=== PATIENT | female | born 1960 | race Asian ===

== ENCOUNTER 2019-06-16 14:46 | Outpatient (REF) | payer BC, SELFPAY ==
[2019-06-17 16:02] LABS: Fecal Immunochemical Test Negative (Negative)
== END 2019-06-16 15:06 ==
LOC: LBN 14:46
PROVIDERS: PCP Nurse Practitioner Family; Visit Provider Nurse Practitioner Family
DX: Z12.11 Encounter for screening for malignant neoplasm of colon (principal)
CPT/HCPCS: 82274

== ENCOUNTER 2019-10-01 02:21 | Outpatient (CLI) | payer OTHER, SELFPAY ==
--- NOTE | 2019-10-01 07:30 | DI.MAMMO_ITS ---
EXAM: MG MAMMO SCREENING CLINICAL HISTORY: SCREENING, Z12.39. TECHNIQUE: Bilateral full field digital CC and MLO mammographic images were obtained with 3D tomosyn thesis and utilizing computer aided detection (CAD). COMPARISON: Available for comparison. FINDINGS: Masses/Architectural Distortion: None seen. Microcalcifications: No suspicious pleomorphic-type are seen. Skin Thickening/Nipple Retraction: None. IMPRESSION: 1. No significant interval change with no specific features of malignancy noted. 2. Unless there is more urgent need, screening mammography is recommended, as per [employer] guidelines. ACR BI-RAD Category- 1 Negative Breast Density - Category C - Heterogeneously dense The mammogram demonstrates the patient's breast tissue is dense. Dense breast tissue is very common a nd is not abnormal but dense breast tissue can make it harder to find cancer on a mammogram. Also, de nse breast tissue may increase their breast cancer risk. This information about the result of the [facility] mogram report was provided to the patient to raise their awareness. Use this report when you speak wi th the patient about their risks for breast cancer, which includes their family history. At that time , you may recommend for more screening tests (Ultrasound or MRI) as they might be useful based on the ir risk. A negative radiographic report should not delay biopsy if a dominant or clinically suspicious mass is present. Up to ten percent of cancers are not identified on mammography. A negative report may reinforce clinical impression. Adenosis and dense breasts may obscure an underlying neoplasm. False positive reports average 6 to 10%. Patient will receive a letter notifying them of these results.
[2019-10-01 08:45] LABS: Hemoglobin A1C 5.8 % (3.8-5.6)
[2019-10-01 08:47] LABS: ALT 52 U/L (14-59); AST 30 U/L (15-37); Albumin 3.8 g/dL (3.4-5.0); Alkaline Phosphatase 91 U/L (46-116); Anion Gap 8.3 mmol/L (3-11); BUN 23 mg/dL (7-18); Bilirubin, Total 0.4 mg/dL (0.2-1.0); CO2 27.7 mmol/L (21.0-32.0); CREATININE 0.65 mg/dL (0.55-1.02); Calcium 9.2 mg/dL (8.5-10.1); Calculated LDL 160 mg/dL (<100); Chloride 106 mmol/L (98-107); Cholesterol 248 mg/dL (<200); Glucose 94 mg/dL (74-106); HDL Cholesterol 83 mg/dL (40-60); Potassium 4.5 mmol/L (3.5-5.1); Sodium 142 mmol/L (136-145); Total Protein 7.2 g/dL (6.4-8.2); Triglyceride 28 mg/dL (<150)
== END 2019-10-01 02:41 ==
PROVIDERS: PCP Nurse Practitioner Family; Visit Provider Nurse Practitioner
DX: Z12.31 Encounter for screening mammogram for malignant neoplasm of breast (principal); R73.01 Impaired fasting glucose; E66.9 Obesity, unspecified; Z00.00 Encounter for general adult medical examination without abnormal findings
CPT/HCPCS: 36415; 77063; 77067; 80053; 80061; 83036

== ENCOUNTER 2021-02-28 02:26 | Outpatient (CLI) | payer MEDICAID, SELFPAY ==
--- NOTE | 2021-02-28 07:00 | DI.RAD_ITS ---
Exam(s) XR FINGER LT INDEX EXAM: XR FINGER LT INDEX CLINICAL HISTORY: INJURY IN NOVEMBER,? FOREIGN BODY,PAIN LT HAND,SWELLING OF FINGER,M79.645,M79.. TECHNIQUE: 2D digital imaging was performed. COMPARISON: None. FINDINGS: BONES: No acute fracture is present. No bony destructive lesion is seen. There are severe degenerati ve changes at the 1st carpal metacarpal joint. JOINTS: No dislocation present. SOFT TISSUE: Normal. No foreign body is identified. IMPRESSION: Severe degenerative changes at the 1st carpometacarpal joint. No evidence of radiopaque foreign body in the index finger.. DATA REPOSITORY: RADIATION DOSE DELIVERED:
== END 2021-02-28 02:46 ==
PROVIDERS: PCP Nurse Practitioner Family; Visit Provider Nurse Practitioner Family
DX: M18.9 Osteoarthritis of first carpometacarpal joint, unspecified (principal)
CPT/HCPCS: 73140

== ENCOUNTER 2021-06-27 04:14 | Outpatient (CLI) | payer MEDICAID, SELFPAY ==
[2021-06-27 13:31] LABS: Calculated LDL 172 mg/dL (<100); Cholesterol 255 mg/dL (<200); HDL Cholesterol 77 mg/dL (40-60); Triglyceride 30 mg/dL (<150)
[2021-06-27 13:41] LABS: Hemoglobin A1C 5.7 % (<5.7)
[2021-06-30 02:34] LABS: 25-Hydroxy D Total 35 ng/mL; 25-Hydroxy D2 <4.0 ng/mL; 25-Hydroxy D3 35 ng/mL
== END 2021-06-27 04:15 | disposition home or self-care (01) ==
LOC: LBO 04:14
PROVIDERS: Podiatrist; PCP Nurse Practitioner Family; Visit Provider Nurse Practitioner Family
DX: Z01.818 Encounter for other preprocedural examination (principal)
CPT/HCPCS: 36415; 80061; 82306; 83036

== ENCOUNTER 2021-09-14 14:00 | Outpatient (REF) | payer MEDICAID, SELFPAY ==
--- NOTE | 2021-09-14 13:45 | PAPFT_PTH ---
PATIENT: Jenny Sheldon LOC: [facility] U#:[id number] AGE/SX: 61/F ROOM: RE09/14/[address]: Alison Dsouza APRN : 1960 BED: DIS: 09/14/2021 SPEC #: [id number] RECD: 09/14/21 18:02 STATUS: TOVA RETrent #: [id number] ROBER: 09/14/21 13:[address]: Alison Dsouza DEPT: [facility] Cytology RECD BY: Florinda Panda Tissues: 1 - CX/ENDOCX FOR PAP SMEARS Procedures: PAP THIN PREP/UVM Screening HPV DNA PROBE Comments: [id number]
== END 2021-09-14 14:01 | disposition home or self-care (01) ==
LOC: LBN 14:00
PROVIDERS: PCP Nurse Practitioner Family; Visit Provider Nurse Practitioner Family
DX: Z12.4 Encounter for screening for malignant neoplasm of cervix (principal); Z11.51 Encounter for screening for human papillomavirus (HPV)
CPT/HCPCS: 88142; 87624

== ENCOUNTER 2021-10-26 13:40 | Outpatient (CLI) | payer MEDICAID, SELFPAY ==
--- NOTE | 2021-10-26 13:30 | RT.EKG_ITS ---
APPROVED REPORT Exam: Resting ECG Reason for Exam: Preoperative evaluation Patient Location: O HR:85 bpm ECG Measurements Heart Rate 85 AXIS TN 158 P 45 QRSd 90 QRS 45 QT 366 T 32 QTc 435 Conclusion Sinus rhythm...normal P axis, V-rate 60- 99 Normal Electrocardiogram
== END 2021-10-26 13:41 | disposition home or self-care (01) ==
LOC: DI.KIM 13:41
PROVIDERS: PCP Nurse Practitioner Family; Visit Provider Nurse Practitioner Family
DX: Z01.818 Encounter for other preprocedural examination (principal)
CPT/HCPCS: 93010

== ENCOUNTER 2021-10-30 01:56 | Outpatient (CLI) | payer MEDICAID, SELFPAY ==
[2021-11-01 12:59] LABS: TB1 Ag minus Nil 2.24 IU/ml; TB2 Ag minus Nil 2.41 IU/mL
[2021-11-01 16:08] LABS: TB Interpretation Positive (Negative)
== END 2021-10-30 01:57 | disposition home or self-care (01) ==
LOC: LBO 01:56
PROVIDERS: Absent Provider Nurse Practitioner Family; PCP Nurse Practitioner Family
DX: Z86.11 Personal history of tuberculosis (principal)
CPT/HCPCS: 36415; 86480

== ENCOUNTER 2021-10-31 01:19 | Outpatient (CLI) | payer MEDICAID, SELFPAY ==
[2021-10-31 11:57] LABS: Source Nasal/Nares
[2021-10-31 14:42] LABS: COVID-19 PCR Negative (Negative)
== END 2021-10-31 01:20 | disposition home or self-care (01) ==
LOC: LBO 01:19
PROVIDERS: PCP Nurse Practitioner Family; Visit Provider Orthopaedic Surgery
DX: Z20.822 Contact with and (suspected) exposure to COVID-19 (principal); Z01.818 Encounter for other preprocedural examination
CPT/HCPCS: 87635

== ENCOUNTER 2021-11-02 02:29 | Outpatient (CLI) | payer MEDICAID, SELFPAY ==
--- NOTE | 2021-11-02 07:30 | DI.MAMMO_ITS ---
Exam(s) MAMMO SCREENING EXAM: MAMMO SCREENING CLINICAL HISTORY: screening,z12.39. TECHNIQUE: Bilateral full field digital CC and MLO mammographic images were obtained with 3D tomosyn thesis and utilizing computer aided detection (CAD). COMPARISON: Prior mammograms were reviewed, the most recent being September 2019. FINDINGS: There has been no significant change in the appearance and distribution of the fibroglandular tissue. There are no new spiculated masses nor malignant appearing microcalcification groups. There is no significant architectural distortion nor skin thickening-retraction. IMPRESSION: No radiographic evidence of malignancy. BI-RADS Category 1 - Negative Breast Density - Category C - Heterogeneously dense Breast density Category C or D implies that the patient has dense breast tissue. Dense breast tissue can make it harder to find cancer on a mammogram. Dense breast tissue is also associated with an incr eased risk of breast cancer. This information about the result of the mammogram report was provided to the patient to raise their awareness. Use this report when you speak with the patient about their risks for breast cancer, which includes their family history. At that time, you may recommend additional screening tests (Ultrasoun d or MRI) as these tests may add significant information. A negative radiographic report should not delay biopsy if a dominant or clinically suspicious mass is present. Up to ten percent of cancers are not identified on mammography. A negative report may reinforce clinical impression. Adenosis and dense breasts may obscure an underlying neoplasm. False positive reports average 6 to 10%. Patient will receive a letter notifying them of these results.
--- NOTE | 2021-11-02 09:15 | DI.RAD_ITS ---
Exam(s) XR CHEST 2V PA LATERAL EXAM: XR CHEST 2V PA LATERAL CLINICAL HISTORY: Hx TB s/p tx; r/o active TB R76.12 Z86.11 HS TB. TECHNIQUE: 2D digital imaging was performed. COMPARISON: No exams were available for comparison FINDINGS: 2 views: Heart size is normal. The mediastinum is not widened. Lungs are clear. No infiltrates nor pleural effusions. IMPRESSION: No acute pulmonary findings. DATA REPOSITORY: RADIATION DOSE DELIVERED:
== END 2021-11-02 02:49 ==
PROVIDERS: PCP Nurse Practitioner Family; Visit Provider Nurse Practitioner Family
DX: Z12.31 Encounter for screening mammogram for malignant neoplasm of breast (principal); R76.12 Nonspecific reaction to cell mediated immunity measurement of gamma interferon antigen response without active tuberculosis; Z86.11 Personal history of tuberculosis; R92.8 Other abnormal and inconclusive findings on diagnostic imaging of breast
CPT/HCPCS: 77063; 77067; 71046

== ENCOUNTER 2023-09-24 11:36 | Outpatient (CLI) | payer BC, SELFPAY ==
[2023-09-24 12:59] LABS: Calculated LDL 154 mg/dL (<100); Cholesterol 249 mg/dL (<200); HDL Cholesterol 83 mg/dL (40-60); Triglyceride 62 mg/dL (<150)
== END 2023-09-24 11:37 | disposition home or self-care (01) ==
LOC: LBO 11:38
PROVIDERS: PCP Nurse Practitioner Family; Visit Provider Nurse Practitioner
DX: E78.5 Hyperlipidemia, unspecified (principal)
CPT/HCPCS: 36415; 80061

== ENCOUNTER → 2023-11-26 04:02 | Outpatient (CLI) | payer BC, SELFPAY ==
--- NOTE | 2023-11-26 06:30 | DI.MAMMO_ITS ---
Exam(s) MAMMO SCREENING EXAM: MAMMO SCREENING CLINICAL HISTORY: screening,Z12.39 TECHNIQUE: Mammograms were interpreted according to the usual protocol including computer analysis w [employer] CAD system, tomosynthesis and C-view imaging. COMPARISON: 2015 through 2021 FINDINGS: The breasts are composed of scattered fibroglandular densities, Breast Density category B. No suspicious masses or suspicious microcalcifications are seen. No skin thickening or abnormal axillary lymph nodes are seen. There has been no significant change from prior exams. IMPRESSION: BI-RADS Category 1, Negative mammogram Yearly screening mammography is recommended. Breast Density - Category B, scattered fibroglandular densities. A negative radiographic report should not delay biopsy if a dominant or clinically suspicious mass is present. Up to ten percent of cancers are not identified on mammography. A negative report may reinforce clinical impression. Adenosis and dense breasts may obscure an underlying neoplasm. False positive reports average 6 to 10%. Patient will receive a letter notifying them of these results.
== END ==
PROVIDERS: PCP Nurse Practitioner Family; Visit Provider Nurse Practitioner
DX: Z12.31 Encounter for screening mammogram for malignant neoplasm of breast (principal); R92.323 Mammographic fibroglandular density, bilateral breasts
CPT/HCPCS: 77063; 77067

== ENCOUNTER 2024-12-29 02:04 | Outpatient (CLI) | payer BC, SELFPAY ==
--- NOTE | 2024-12-29 12:30 | DI.MAMMO_ITS ---
Exam(s) MAMMO SCREENING EXAM: MAMMO SCREENING CLINICAL HISTORY: screening,Z12.39 TECHNIQUE: Bilateral full field digital CC and MLO mammographic images were obtained with 3D tomosyn thesis and utilizing computer aided detection (CAD). COMPARISON: Available for comparison. FINDINGS: Masses/Architectural Distortion: There is a new 7 mm nodule in the posterior left breast on the MLO v iew 7 cm from the nipple. There are no areas of architectural distortion. Microcalcifications: No suspicious pleomorphic-type are seen. Skin Thickening/Nipple Retraction: None. IMPRESSION: 1. New 7 mm left breast nodule on the MLO view. 2. Spot compression views requested for further evaluation. Ultrasound may be indicated at that time . BI-RADS Category 0 - Incomplete: Need additional imaging evaluation Breast Density - Category B - There are scattered areas of fibroglandular density. Breast density category C or D implies that the patient has dense breast tissue. Dense breast tissue is very common and is not abnormal but dense breast tissue can make it harder to find cancer on a ma mmogram. Also, dense breast tissue may increase their breast cancer risk. This information about the result of the mammogram report was provided to the patient to raise their awareness. Use this report when you speak with the patient about their risks for breast cancer, which includes their family hist ory. At that time, you may recommend for more screening tests (Ultrasound or MRI) as they might be us eful based on their risk. A negative radiographic report should not delay biopsy if a dominant or clinically suspicious mass is present. Up to ten percent of cancers are not identified on mammography. A negative report may reinforce clinical impression. Adenosis and dense breasts may obscure an underlying neoplasm. False positive reports average 6 to 10%. Patient will receive a letter notifying them of these results.
== END 2024-12-29 02:24 ==
LOC: DI 02:04
PROVIDERS: PCP Nurse Practitioner Family; Visit Provider Nurse Practitioner
DX: Z12.31 Encounter for screening mammogram for malignant neoplasm of breast (principal); R92.323 Mammographic fibroglandular density, bilateral breasts
CPT/HCPCS: 77063; 77067

== ENCOUNTER 2025-01-07 02:36 | Outpatient (CLI) | payer BC, SELFPAY ==
--- NOTE | 2025-01-07 | DI.US_ITS ---
Exam(s) MG MAMMO SCREEN CALL BACK UNI US BREAST LT LIMITED EXAM: MAMMO SCREEN CALL BACK UNI CLINICAL HISTORY: New 7 mm nodule posterior lt breast on MLO view 7 cm from nipple. TECHNIQUE: Mediolateral oblique spot compression digital Mammography views of the leftbreast with T omosynthesis and left breast ultrasound. COMPARISON: [facility] MAMMO SCREENING from 12/29/2024 FINDINGS: Mammography/Tomosynthesis: Masses: Area of nodularity posterior portion of the breast is less visible. Architectural Distortion: None seen. Microcalcifictions: No suspicious pleomorphic-type are seen. Skin Thickening/Nipple Retraction: None. Left breast US: Echotexture: Normal appearance of the glandular tissue. Shadowing: No suspicious foci. Cyst: None. Solid lesions: None seen. Ductal dilation: None. IMPRESSION: 1. Decreased prominence of asymmetric density in the posterior left breast. No ultrasound abnormalit y was identified. 2. Six-month follow-up left mammogram and ultrasound recommended. 3. The findings were discussed with the patient on the date of the examination. BI-RADS Category 3 - 6 month - Probably Benign Finding: Recommend follow-up mammography in 6 months Breast Density - Category B - There are scattered areas of fibroglandular density. Breast density Category C or D implies that the patient has dense breast tissue. Dense breast tissue can make it harder to find cancer on a mammogram. Dense breast tissue is also associated with an incr eased risk of breast cancer. This information about the result of the mammogram report was provided to the patient to raise their awareness. Use this report when you speak with the patient about their risks for breast cancer, which includes their family history. At that time, you may recommend additional screening tests (Ultrasoun d or MRI) as these tests may add significant information. A negative radiographic report should not delay biopsy if a dominant or clinically suspicious mass is present. Up to ten percent of cancers are not identified on mammography. A negative report may reinforce clinical impression. Adenosis and dense breasts may obscure an underlying neoplasm. False positive reports average 6 to 10%. Patient will receive a letter notifying them of these results.
== END 2025-01-07 02:56 ==
LOC: DI 02:36
PROVIDERS: PCP Nurse Practitioner Family; Visit Provider Nurse Practitioner
DX: Z12.31 Encounter for screening mammogram for malignant neoplasm of breast (principal); N63.25 Unspecified lump in the left breast, overlapping quadrants
CPT/HCPCS: 76642; 77063; 77067

== ENCOUNTER 2025-02-04 01:02 | Outpatient (CLI) | payer BC, SELFPAY ==
[2025-02-04 07:26] LABS: HGB 13.3 g/dL (11.2-15.7); MCH 29.3 pg (27.0-33.0); MCHC 33.3 % (32.0-36.0); MCV 88 fL (80-95); MPV 9.2 fL (8.0-11.0); Platelet Count 251 10^3/uL (130-400); RBC 4.54 10^6/uL (3.93-5.22); RDW 12.7 % (11.7-14.6); RDW-SD 40.7 fL; WBC 6.59 10^3/uL (4.4-10.8)
[2025-02-04 08:24] LABS: ALT 30 U/L (14-59); AST 24 U/L (15-37); Alkaline Phosphatase 72 U/L (46-116); Anion Gap 5.2 mmol/L (3-11); BUN 17 mg/dL (7-18); Bilirubin, Total 0.4 mg/dL (0.2-1.0); CO2 29.8 mmol/L (21.0-32.0); CREATININE 0.7 mg/dL (0.55-1.02); Calcium 9.4 mg/dL (8.5-10.1); Chloride 104 mmol/L (98-107); Cholesterol 234 mg/dL (<200); Estimated GFR 96.52 (mL/min/1.73m2); Glucose 93 mg/dL (74-106); HDL Cholesterol 73 mg/dL (>or=50); Potassium 3.9 mmol/L (3.5-5.1); Sodium 139 mmol/L (136-145); Total Protein 7.9 g/dL (6.4-8.2); Triglyceride <25 mg/dL (<150)
[2025-02-04 08:35] LABS: LDL CHOLESTEROL 156 mg/dL (<100)
[2025-02-05 15:30] LABS: Hemoglobin A1C 5.4 % (<5.7)
== END 2025-02-04 01:03 | disposition home or self-care (01) ==
PROVIDERS: PCP Nurse Practitioner Family; Visit Provider Nurse Practitioner
DX: E66.9 Obesity, unspecified (principal); R73.01 Impaired fasting glucose; E78.5 Hyperlipidemia, unspecified
CPT/HCPCS: 36415; 80053; 80061; 83721; 85027; 83036

== ENCOUNTER 2025-06-14 15:46 | Outpatient (CLI) | payer MEDICARE, OTHER, SELFPAY ==
--- NOTE | 2025-06-14 15:45 | RT.EKG_ITS ---
APPROVED REPORT Exam: Resting ECG Reason for Exam: rapid pulse Patient Location: O HR:87 bpm ECG Measurements Heart Rate 87 AXIS IN 144 P -20 QRSd 88 QRS 40 QT 347 T 36 QTc 418 Conclusion Sinus rhythm...normal P axis, V-rate 50- 99 Normal Electrocardiogram
== END 2025-06-14 15:47 | disposition home or self-care (01) ==
LOC: DI.KIM 15:47
PROVIDERS: PCP Nurse Practitioner Family
DX: R00.0 Tachycardia, unspecified (principal)
CPT/HCPCS: 93010

== ENCOUNTER → 2025-06-17 08:15 | Outpatient (CLI) | payer MEDICARE, OTHER, SELFPAY ==
--- NOTE | 2025-06-17 06:38 | DI.RAD_ITS ---
Exam(s) XR FOOT LT COMPLETE EXAM: XR FOOT LT COMPLETE CLINICAL HISTORY: Blunt trauma to left 5th toe,PAIN,M79.675. TECHNIQUE: 2D digital imaging was performed. 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 There is also an additional independent oblique screw extending from the medial cuneiform into the middle cuneiform. There is no evidence of hardware loosening and no evidence of osteomyelitis. The most medial of the 4 plates is slightly bowed but otherwise intact. Screws are intact. There are no fractured fusion plate screws. The 4th and 5th tarsometatarsal joints appear unremarkable. Moderate degenerative changes noted in the great toe metatarsophalangeal joint. There is also some degenerative change at the articulation between the distal navicular and the cuneiform bones. There is no pes planus. There is a tiny inferior calcaneal spur. Os trigonum is noted but this exhibits non conventional orientation. IMPRESSION: Prior Lisfranc fusion surgery as described above with 4 fusion plates, 2 across the 1st tarsometatarsal joint and the other 2 across the 2nd and 3rd tarsometatarsal joints. There is fusion across the 1st 3 tarsometatarsal joints. Degenerative changes noted in the great toe metatarsophalangeal joint as well as in the articulation between the distal navicular and cuneiforms. DATA REPOSITORY: RADIATION DOSE DELIVERED:
== END ==
LOC: DI 08:16
DX: Z98.890 Other specified postprocedural states (principal); M19.072 Primary osteoarthritis, left ankle and foot
CPT/HCPCS: 73630

== ENCOUNTER → 2025-07-20 00:24 | Outpatient (CLI) | payer MEDICARE, OTHER, SELFPAY ==
--- NOTE | 2025-07-20 06:45 | DI.US_ITS ---
Exam(s) US BREAST LT COMPLETE MG MAMMO DIAGNOSTIC UNI EXAM: MG MAMMO DIAGNOSTIC UNI LEFT AND COMPLETE LEFT BREAST ULTRASOUND CLINICAL HISTORY: abn mammo,6 mo f/u,r92.8,lt breast nodularity. TECHNIQUE: Unilateral LEFT BREAST spot mammographic images were obtained with 3D tomosynthesis technique and utilizing computer aided detection (CAD). COMPLETE LEFT BREAST ULTRASOUND was performed including all 4 quadrants as well as the left axilla. COMPARISON: Prior mammograms were reviewed, as was prior ultrasound examination of 01/07/2025. FINDINGS: DIAGNOSTIC LEFT BREAST MAMMOGRAM: Previously described benign-appearing nodule posteriorly in left breast is unchanged and has appearance of a probable benign intramammary lymph node. Other areas of mild asymmetric densities noted. There are no obvious spiculated masses nor malignant-appearing microcalcification groups in the left breast. We proceeded with complete left breast ultrasound COMPLETE LEFT BREAST ULTRASOUND: No evidence of solid or significant cystic lesions in all 4 quadrants. A small finding at the 11 o'clock position does not hold up in all planes Scanning of the left axilla is negative for adenopathy. IMPRESSION: Benign mammographic findings. Benign left breast ultrasound findings. Appropriate follow-up is he this patient on her yearly mammogram schedule, this implying that her next bilateral mammogram would be in 6 months, with earlier imaging if a self detected breast change is noted.. The patient was informed of the findings and follow-up by myself recommendations prior to leaving the department today. BI-RADS Category 2 - Benign Findings Breast Density - Category C - The breast are heterogeneously dense, which may obscure small masses. Breast density Category C or D implies that the patient has dense breast tissue. Dense breast tissue can make it harder to find cancer on a mammogram. Dense breast tissue is also associated with an increased risk of breast cancer. This information about the result of the mammogram report was provided to the patient to raise their awareness. Use this report when you speak with the patient about their risks for breast cancer, which includes their family history. At that time, you may recommend additional screening tests (Ultrasound or MRI) as these tests may add significant information. A negative radiographic report should not delay biopsy if a dominant or clinically suspicious mass is present. Up to ten percent of cancers are not identified on mammography. A negative report may reinforce clinical impression. Adenosis and dense breasts may obscure an underlying neoplasm. False positive reports average 6 to 10%. Patient will receive a letter notifying them of these results.
== END ==
LOC: DI 00:24
PROVIDERS: Visit Provider Nurse Practitioner
DX: R92.8 Other abnormal and inconclusive findings on diagnostic imaging of breast (principal); Z12.31 Encounter for screening mammogram for malignant neoplasm of breast
CPT/HCPCS: 76642; 77061; 77065; G0279